=== PATIENT | male | born 1990 | race Caucasian/White ===

== ENCOUNTER 2018-05-17 01:32 | Emergency (ER) | payer OTHER | END 2018-05-17 03:43 | disposition other institution (70) | LOC: ED 01:32 | DX: Z02.89 Encounter for other administrative examinations (principal) ==

== ENCOUNTER 2018-05-17 01:32 | Emergency (ER) | payer SELFPAY ==
[~2018-05-17] VITALS: Ht 185.4 cm; Wt 86.2 kg
[2018-05-17 01:38] VITALS: Ht 185.4 cm; Wt 86.2 kg
[2018-05-17 03:29] VITALS: BP 146/95
== END 2018-05-17 03:43 | disposition other institution (70) ==
LOC: ED 01:32
DX: S63.92XA Sprain of unspecified part of left wrist and hand, initial encounter (principal); F90.9 Attention-deficit hyperactivity disorder, unspecified type; V89.2XXA Person injured in unspecified motor-vehicle accident, traffic, initial encounter; Y93.I9 Activity, other involving external motion; Y92.413 State road as the place of occurrence of the external cause; Y99.8 Other external cause status
CPT/HCPCS: J1885